=== PATIENT | female | born 1955 | race Caucasian/White ===

== ENCOUNTER 2017-08-12 11:02 | Emergency (ER) | payer OTHER ==
[~2017-08-12] VITALS: Ht 165.1 cm; Wt 56.7 kg
[2017-08-12] MEDS ORDERED: VALIUM5 MG PO (12:12)
[2017-08-12] MEDS ORDERED: MOBIC15 MG PO (12:12)
== END 2017-08-12 12:27 | disposition home or self-care (01) ==
LOC: ER 11:02
DX: S16.1XXA Strain of muscle, fascia and tendon at neck level, initial encounter (principal); E78.5 Hyperlipidemia, unspecified; F32.9 Major depressive disorder, single episode, unspecified; X58.XXXA Exposure to other specified factors, initial encounter; Y93.89 Activity, other specified; Y92.89 Other specified places as the place of occurrence of the external cause; Y99.8 Other external cause status